=== PATIENT | female | born 1980 | race Caucasian/White ===

== ENCOUNTER → 2017-05-30 | Outpatient (CLI) | payer SELFPAY ==
--- NOTE | 2017-05-30 14:33 | RADIOLOGY REPORT (SQ) ---
EXAM DESCRIPTION: U/S [id number] TRNABD 1GES W/ODOP COMPLETED DATE/TIME: 05/30/2017 1:44 pm REASON FOR STUDY: ENCTR FOR SUPERVISION OF OTHER NORMAL , 1ST TRIMESTER (Z34.81) Z34.81 EN COUNTER FOR SUPRVSN OF NORMAL , FIRST TRIM COMPARISON: No previous this TECHNIQUE: Transabdominal static and realtime grayscale images acquired of the pelvis. Additional se lected spectral and color Doppler images recorded. All images stored on PACs. bHCG: Not available. Last menses 03/09/2017 LIMITATIONS: Right ovary not visualized FINDINGS: FETUS: Living intrauterine . EGA: 10 weeks 2 days PAT: 12/24/2017 FHR: 173 beats per minute. SUBCHORIONIC BLEED: Yes, small SIZE OF BLEED: 2.0 x 0.5 cm in size UTERUS: No masses. No anomalies. Uterus is 14 x 8 x 6 cm in size. CERVICAL LENGTH: 3.9 cm Closed. RIGHT ADNEXA: Right ovary not identified due to adnexal bowel gas LEFT ADNEXA: Normal ovary with normal vascular flow. Left ovary 2.8 x 2.6 x 1.6 cm with a 2 cm corpu s luteal cyst No adnexal free fluid. No adnexal masses. FREE FLUID: None. OTHER: No other significant finding. IMPRESSION: LIVING INTRAUTERINE . EGA 10 weeks 2 days Trimester of : First - 0 to 13 weeks. TECHNICAL DOCUMENTATION: JOB ID: [id number] [employer]- All Rights Reserved Reading location - IP/workstation name: [email or web address]
== END ==
LOC: RAD 12:40
PROVIDERS: ATTEND Nurse Practitioner Women's Health
DX: Z34.81 Encounter for supervision of other normal pregnancy, first trimester (principal)
CPT/HCPCS: 76801

== ENCOUNTER 2019-06-18 22:19 | Emergency (ER) | payer MEDICAID ==
[2019-06-18 22:23] VITALS: BP 121/76
[2019-06-18] MEDS ORDERED: DEXAMETHASONE SOD PHOS INJ 10 MG/1 ML VIAL IM ONE (22:36)
[2019-06-18] MEDS ORDERED: PENICILLIN G BENZATHINE 1.2 MILLION UNIT/2 ML DISP.SYRIN IM ONE ×2 (22:36→22:46)
--- NOTE | 2019-06-18 22:42 | ER Document Report ---
ED General - General Chief Complaint: Mouth Problem Stated Complaint: MOUTH PAIN/NECK PAIN Primary Care Provider: SHARMIN RODARTE NP [Primary Care Provider] - Follow up as needed Notes: Patient is a 39-year-old white female with a recent past medical history of dental work to the right teeth who presents to the emergency department the chief complaint of dental pain that began today. She states she is noticed a right swollen submandibular lymph node as well that is tender. She states she has pain with opening the mouth, chewing and eating. She admits to low-grade fevers at home. Denies any nausea, vomiting or diarrhea. Denies any chills or night sweats. Denies any tongue or throat swelling. Denies any pooling of secretions. TRAVEL OUTSIDE OF THE [place] IN LAST 30 DAYS: No - Related Data Allergies/Adverse Reactions: ibuprofen Allergy (Verified 06/18/19 22:26) Past Medical History - Social History Smoking Status: Never Smoker Frequency of alcohol use: None Drug Abuse: None Family History: None Patient has suicidal ideation: No Patient has homicidal ideation: No Past Surgical History: Reports: Hx Section, Hx Orthopedic Surgery - left wrist Review of Systems - Review of Systems EENT: Mouth pain, Dental problem -: Yes All other systems reviewed and negative Physical Exam - Vital signs Vitals: Temp Pulse Resp BP Pulse Ox 98.1 F 71 20 121/76 100 06/18/19 22:22 06/18/19 22:22 06/18/19 22:22 06/18/19 22:22 06/18/19 22:22 - General General appearance: Appears well, Alert In distress: None - HEENT Head: Normocephalic, Atraumatic Eyes: Normal Conjunctiva: Normal Extraocular movements intact: Yes Eyelashes: Normal Pupils: PERRL Ears: Normal External canal: Normal Tympanic membrane: Normal Nasal: Normal Mouth/Lips: Other - Herpetic lesion to the right side of the mouth. Normal in appearance Mucous membranes: Moist Pharynx: Other - Patient with a 2 finger trismus. Patent airway. Handling secretions well. No sublingual or submental swelling. Tenderness to percussion of the upper and lower molars on the right. Some mild extra mandibular swelling is appreciated as compared with the left. There is a tender swollen right submandibular gland. - Respiratory Respiratory status: No respiratory distress Chest status: Nontender Breath sounds: Normal Chest palpation: Normal - Cardiovascular Rhythm: Regular Heart sounds: Normal auscultation - Neurological Neuro grossly intact: Yes Cognition: Normal Orientation: AAOx4 - Psychological Associated symptoms: Normal affect, Normal mood - Skin Skin Temperature: Warm Skin Moisture: Dry Skin Color: Normal Course - Re-evaluation Re-evalutation: 06/18/19 22:43 Patient with a history and physical consistent with a dental abscess. Given a shot of penicillin and Decadron here. Sent home with Pen-Vee K and Peridex mouthwash. She will call her dentist on Friday morning for further care and evaluation and management. Advise she return here or any ER immediately with any new, persistent or worsening symptoms. She verbalized understood and agreed. - Vital Signs Vital signs: Temp Pulse Resp BP Pulse Ox 98.1 F 71 20 121/76 100 06/18/19 22:22 06/18/19 22:22 06/18/19 22:22 06/18/19 22:22 06/18/19 22:22 Discharge - Discharge Clinical Impression: Dental abscess, Dentalgia Condition: Stable Disposition: HOME, SELF-CARE Instructions: Toothache ([facility]), Penicillin V K ([facility]) Additional Instructions: Please call your dentist on Friday for further care and evaluation. Return here or any ER immediately with any new, persistent or worsening symptoms. Prescriptions: Penicillin V Potassium [Penicillin Vk 500 mg Tablet] 500 mg PO QID #40 tablet Chlorhexidine Gluconate [Peridex] 15 ml MM BID #120 mouthwash Referrals: SHARMIN RODARTE NP [Primary Care Provider] - Follow up as needed
== END 2019-06-18 23:25 | disposition home or self-care (01) ==
LOC: ER 22:19
DX: K04.7 Periapical abscess without sinus (principal); K08.89 Other specified disorders of teeth and supporting structures; M54.2 Cervicalgia; R22.0 Localized swelling, mass and lump, head; R50.9 Fever, unspecified
CPT/HCPCS: 99282; 96372; J0561; J1100